=== PATIENT | male | born 1955 | race Caucasian/White ===

== ENCOUNTER 2024-05-15 10:49 | Outpatient (CLI) | payer BC, MEDICARE | END 2024-05-15 10:50 | disposition home or self-care (01) | LOC: CSHWCC 10:49 | PROVIDERS: ATTEND Nurse Practitioner Family | DX: I87.331 Chronic venous hypertension (idiopathic) with ulcer and inflammation of right lower extremity (principal); E11.622 Type 2 diabetes mellitus with other skin ulcer; E11.22 Type 2 diabetes mellitus with diabetic chronic kidney disease; L97.212 Non-pressure chronic ulcer of right calf with fat layer exposed; I50.22 Chronic systolic (congestive) heart failure; I73.9 Peripheral vascular disease, unspecified; N18.6 End stage renal disease | CPT/HCPCS: 99213; G0463 ==

== ENCOUNTER 2024-05-22 11:49 | Outpatient (CLI) | payer BC, MEDICARE | END 2024-05-22 11:50 | disposition home or self-care (01) | LOC: CSHWCC 11:49 | PROVIDERS: ATTEND Nurse Practitioner Family | DX: E11.622 Type 2 diabetes mellitus with other skin ulcer (principal); I87.331 Chronic venous hypertension (idiopathic) with ulcer and inflammation of right lower extremity; L97.212 Non-pressure chronic ulcer of right calf with fat layer exposed; I50.22 Chronic systolic (congestive) heart failure; E11.22 Type 2 diabetes mellitus with diabetic chronic kidney disease; N18.6 End stage renal disease; E11.51 Type 2 diabetes mellitus with diabetic peripheral angiopathy without gangrene; I73.9 Peripheral vascular disease, unspecified | CPT/HCPCS: 97597 ==

== ENCOUNTER 2024-06-05 11:34 | Outpatient (CLI) | payer BC, MEDICARE | END 2024-06-05 11:35 | disposition home or self-care (01) | LOC: CSHWCC 11:34 | PROVIDERS: ATTEND Nurse Practitioner Family | DX: I87.331 Chronic venous hypertension (idiopathic) with ulcer and inflammation of right lower extremity (principal); E11.622 Type 2 diabetes mellitus with other skin ulcer; L97.212 Non-pressure chronic ulcer of right calf with fat layer exposed; E11.22 Type 2 diabetes mellitus with diabetic chronic kidney disease; N18.6 End stage renal disease; E11.51 Type 2 diabetes mellitus with diabetic peripheral angiopathy without gangrene; I50.22 Chronic systolic (congestive) heart failure | CPT/HCPCS: 99212; G0463 ==